=== PATIENT | male | born 1945 | race Caucasian/White ===

== ENCOUNTER 2020-10-06 13:38 | Outpatient (CLI) | payer MEDICARE ==
[~2020-10-06 13:38] MED LIST: Magnevist 469MG/ML 20 ML VIAL ONE
== END 2020-10-06 13:39 | disposition home or self-care (01) ==
LOC: BICMRI 13:38
PROVIDERS: ATTEND Specialist
DX: M51.16 Intervertebral disc disorders with radiculopathy, lumbar region (principal); M47.26 Other spondylosis with radiculopathy, lumbar region; M47.817 Spondylosis without myelopathy or radiculopathy, lumbosacral region; M48.061 Spinal stenosis, lumbar region without neurogenic claudication; Z98.890 Other specified postprocedural states
CPT/HCPCS: 72158; 82565; A9579

== ENCOUNTER → 2021-02-18 | Outpatient (CLI) | payer MEDICARE | LOC: SLEEPLAB 19:30 | PROVIDERS: ATTEND Student in an Organized Health Care Education/Training Program | DX: G47.33 Obstructive sleep apnea (adult) (pediatric) (principal); R51.9 Headache, unspecified; R09.89 Other specified symptoms and signs involving the circulatory and respiratory systems; K21.9 Gastro-esophageal reflux disease without esophagitis; R06.83 Snoring; R35.1 Nocturia; I51.9 Heart disease, unspecified; I10 Essential (primary) hypertension; I21.9 Acute myocardial infarction, unspecified; I25.10 Atherosclerotic heart disease of native coronary artery without angina pectoris; E11.9 Type 2 diabetes mellitus without complications; G47.61 Periodic limb movement disorder; E66.9 Obesity, unspecified; Z68.37 Body mass index [BMI] 37.0-37.9, adult | CPT/HCPCS: 95810 ==

== ENCOUNTER 2021-04-05 12:58 | Inpatient (IN) | payer MEDICARE ==
[2021-04-05 14:06] LABS: #Eosinphils 0.3 thou/uL (0.0-0.7); #Lymphocytes 1.8 thou/uL (1.20-3.40); #Monocytes 0.8 thou/uL (0.11-0.59); #Neutrophils 4.5 thou/uL (1.40-6.50); %Basophils 0.2 % (0.0-1.0); %Eosinophils 3.5 % (0.0-10.0); %Lymphocytes 24.7 % (21.0-51.0); %Monocytes 10.7 % (0.0-10.0); %Neutrophils 60.8 % (42.0-75.0); Hemoglobin 15.6 g/dL (14.0-18.0); Mean Corpuscular HGB CONC 33.3 g/dL (32.0-36.0); Mean Corpuscular Hemoglobin 31.1 pg (27.0-31.0); Mean Corpuscular Volume 93.2 fL (78.0-98.0); Mean Platelet Volume 10.9 fL (7.4-10.4); Platelet Count 168 thou/uL (130-400); Red Blood Cell (RBC) Count 5.01 mill/uL (4.70-6.10); White Blood Cell (WBC) Count 7.4 thou/uL (4.8-10.8)
[2021-04-05 14:21] LABS: Bilirubin Negative (Negative); Blood, Urine Negative (Negative); Clarity Clear (Clear); Glucose, Urine (Dipstick) Normal (Negative); Ketone, Urine Negative (Negative); Leukocyte Negative Leu/uL (Negative); Nitrite Negative (Negative); Protein, Urine (Dipstick) 20 mg/dL (Neg-Trace); Urobilinogen Normal mg/dL (Less than 2)
[2021-04-05 14:48] LABS: ALT (SGPT) 38 U/L (8-55); AST (SGOT) 45 U/L (5-34); Albumin 3.8 g/dL (3.4-4.8); Alkaline Phosphatase 68 U/L (40-110); Anion Gap 14 mmol/L (10-20); BUN (Urea Nitrogen) 14 mg/dL (8.4-25.7); Bilirubin, Total 0.8 mg/dL (0.2-1.2); Calc. Creatinine Clearance 0 mL/min (70-130); Calcium 9.2 mg/dL (7.8-10.44); Carbon Dioxide 21 mmol/L (23-31); Chloride 106 mmol/L (98-107); Glucose 114 mg/dL (83-110); Potassium 4.1 mmol/L (3.5-5.1); Protein, Total 7.8 g/dL (5.8-8.1); Sodium 137 mmol/L (136-145)
[2021-04-05] MEDS ORDERED: Dextrose 50% Abboject 50 ML SYRINGE SLOW IVP PRN (17:03)
[2021-04-05] MEDS ORDERED: Dextrose 5% in Water 1,000 ML IV PRN (17:03)
[2021-04-05] MEDS ORDERED: Ondansetron ODT 4 MG TAB PO PRN (17:03)
[2021-04-05] MEDS ORDERED: HumaLOG 300 UNITS/3 ML VIAL SC PRN ×2 (17:03)
[2021-04-05 17:58] LABS: Troponin I 0.012 ng/mL (< 0.028)
[2021-04-05] MEDS ORDERED: Nitroglycerin 0.4 MG TAB (25 Tab Bottle) SL PRN (18:05)
[2021-04-05 21:14] LABS: Troponin I 0.015 ng/mL (< 0.028)
[2021-04-05] MEDS: Atorvastatin Calcium 40 MG TAB PO SCH (21:55)
[2021-04-05] MEDS: Acetaminophen 325 MG TAB PO PRN (23:47)
[2021-04-06 01:09] VITALS: BMI 30.6
[2021-04-06] MEDS ORDERED: hydrALAZINE 20 MG/ML VIAL SLOW IVP PRN (05:55)
[2021-04-06 06:52] LABS: #Basophils 0.1 thou/uL (0.0-0.2); #Eosinphils 0.2 thou/uL (0.0-0.7); #Neutrophils 4.5 thou/uL (1.40-6.50); %Basophils 0.7 % (0.0-1.0); %Eosinophils 2.9 % (0.0-10.0); %Lymphocytes 25.9 % (21.0-51.0); %Monocytes 12.4 % (0.0-10.0); %Neutrophils 58.1 % (42.0-75.0); Hemoglobin 15.3 g/dL (14.0-18.0); Mean Corpuscular HGB CONC 31.8 g/dL (32.0-36.0); Mean Corpuscular Hemoglobin 29.5 pg (27.0-31.0); Mean Corpuscular Volume 92.9 fL (78.0-98.0); Mean Platelet Volume 9.5 fL (7.4-10.4); Platelet Count 149 thou/uL (130-400); RBC Distribution Width 13.7 % (11.5-14.5); Red Blood Cell (RBC) Count 5.19 mill/uL (4.70-6.10); White Blood Cell (WBC) Count 7.7 thou/uL (4.8-10.8)
[2021-04-06 07:12] LABS: ALT (SGPT) 35 U/L (8-55); AST (SGOT) 37 U/L (5-34); Albumin 3.8 g/dL (3.4-4.8); Alkaline Phosphatase 68 U/L (40-110); Anion Gap 12 mmol/L (10-20); BUN (Urea Nitrogen) 11 mg/dL (8.4-25.7); Bilirubin, Total 1.1 mg/dL (0.2-1.2); Calc. Creatinine Clearance 141 mL/min (70-130); Calcium 9.4 mg/dL (7.8-10.44); Carbon Dioxide 25 mmol/L (23-31); Chloride 106 mmol/L (98-107); Globulin 3.7 g/dL (2.4-3.5); Glucose 117 mg/dL (83-110); Potassium 3.5 mmol/L (3.5-5.1); Protein, Total 7.5 g/dL (5.8-8.1); Sodium 139 mmol/L (136-145)
[2021-04-06] MEDS: CeleCOXIB 100 MG CAP PO SCH (07:54)
[2021-04-06] MEDS: Enoxaparin Sodium 40 MG/0.4 ML SYRINGE SC SCH (07:54)
[2021-04-06] MEDS: Multivitamin W/ Minerals 1 TAB PO SCH (07:55)
[2021-04-06] MEDS: Thiamine 100 MG TAB PO SCH (07:55)
[2021-04-06] MEDS: metFORMIN 500 MG TAB PO SCH ×2 (07:59→16:38)
[2021-04-06] MEDS: Folic Acid 1 MG TAB PO SCH (07:59)
[2021-04-06 08:18] LABS: Hemoglobin A1c 6.2 % (4.0-6.0)
[2021-04-06] MEDS ORDERED: Lisinopril 5 MG TAB PO SCH (09:00)
[2021-04-06 12:52] LABS: SARS-CoV-2 PCR by NAA Not Detected (NotDetected)
[2021-04-06] MEDS: Acetaminophen 325 MG TAB PO PRN (15:24)
[2021-04-06] MEDS ORDERED: traMADol HCl 50 MG TAB PO PRN (18:04)
[2021-04-06] MEDS: hydrALAZINE 20 MG/ML VIAL SLOW IVP PRN (18:25)
[2021-04-06] MEDS: Atorvastatin Calcium 40 MG TAB PO SCH (20:43)
[2021-04-07] MEDS: hydrALAZINE 20 MG/ML VIAL SLOW IVP PRN ×2 (06:35→10:22)
[2021-04-07] MEDS: metFORMIN 500 MG TAB PO SCH ×2 (08:49→16:29)
[2021-04-07] MEDS: CeleCOXIB 100 MG CAP PO SCH (08:49)
[2021-04-07] MEDS: Thiamine 100 MG TAB PO SCH (08:50)
[2021-04-07] MEDS: Folic Acid 1 MG TAB PO SCH (08:50)
[2021-04-07] MEDS: Enoxaparin Sodium 40 MG/0.4 ML SYRINGE SC SCH (08:50)
[2021-04-07] MEDS: Multivitamin W/ Minerals 1 TAB PO SCH (08:50)
[2021-04-07] MEDS ORDERED: Lisinopril 20 MG TAB PO SCH (09:00)
[2021-04-07] MEDS: Acetaminophen 325 MG TAB PO PRN (16:34)
[2021-04-07] MEDS: Atorvastatin Calcium 40 MG TAB PO SCH (20:42)
[2021-04-08] MEDS: CeleCOXIB 100 MG CAP PO SCH (08:46)
[2021-04-08] MEDS: Lisinopril 20 MG TAB PO SCH (08:47)
[2021-04-08] MEDS: Folic Acid 1 MG TAB PO SCH (08:48)
[2021-04-08] MEDS: Enoxaparin Sodium 40 MG/0.4 ML SYRINGE SC SCH (08:48)
[2021-04-08] MEDS: Multivitamin W/ Minerals 1 TAB PO SCH (08:48)
[2021-04-08] MEDS: metFORMIN 500 MG TAB PO SCH ×2 (08:48→17:16)
[2021-04-08] MEDS: Thiamine 100 MG TAB PO SCH (08:48)
[2021-04-08] MEDS ORDERED: NIFEdipine XL 30 MG TAB PO SCH (09:00)
[2021-04-08] MEDS: Lorazepam 1 MG TAB PO PRN ×2 (15:07→20:06)
[2021-04-08] MEDS: Atorvastatin Calcium 40 MG TAB PO SCH (20:06)
[2021-04-09] MEDS: Lorazepam 1 MG TAB PO PRN (00:05)
[2021-04-09] MEDS: Lisinopril 20 MG TAB PO SCH (13:14)
[2021-04-09] MEDS: CeleCOXIB 100 MG CAP PO SCH (13:16)
[2021-04-09] MEDS: Thiamine 100 MG TAB PO SCH (13:16)
[2021-04-09] MEDS: Folic Acid 1 MG TAB PO SCH (13:16)
[2021-04-09] MEDS: Multivitamin W/ Minerals 1 TAB PO SCH (13:16)
[2021-04-09] MEDS: metFORMIN 500 MG TAB PO SCH ×2 (13:16→17:00)
[2021-04-09] MEDS: Enoxaparin Sodium 40 MG/0.4 ML SYRINGE SC SCH (13:18)
[2021-04-09] MEDS ORDERED: Melatonin 3 MG TAB PO PRN (17:07)
[2021-04-09] MEDS ORDERED: traZODone HCl 50 MG TAB PO PRN (17:07)
[2021-04-09] MEDS: Atorvastatin Calcium 40 MG TAB PO SCH (20:56)
[2021-04-09] MEDS ORDERED: traZODone HCl 50 MG TAB PO SCH (21:00)
[2021-04-10] MEDS ORDERED: Morphine 2 MG/ML VIAL SLOW IVP PRN (07:41)
[2021-04-10] MEDS ORDERED: Lorazepam 2 MG/ML VIAL SLOW IVP PRN (07:41)
[2021-04-10] MEDS ORDERED: Morphine 4 MG/ML VIAL SLOW IVP PRN (07:41)
[2021-04-10 08:01] VITALS: BP 117/61; TEMP 97.7
[2021-04-10] MEDS: metFORMIN 500 MG TAB PO SCH (10:05)
[2021-04-10] MEDS: Thiamine 100 MG TAB PO SCH (10:06)
[2021-04-10] MEDS: Lisinopril 20 MG TAB PO SCH (10:06)
[2021-04-10] MEDS: CeleCOXIB 100 MG CAP PO SCH (10:06)
[2021-04-10] MEDS: Multivitamin W/ Minerals 1 TAB PO SCH (10:06)
[2021-04-10] MEDS: Enoxaparin Sodium 40 MG/0.4 ML SYRINGE SC SCH (10:07)
[2021-04-10] MEDS: Folic Acid 1 MG TAB PO SCH (10:07)
[2021-04-10] MEDS ORDERED: Melatonin 3 MG TAB PO SCH (17:00)
== END 2021-04-10 15:03 | DRG 948 ==
LOC: ERS 12:58 → T4-B 16:50 → INTOOBSV 16:50 → OBSVTOIN 04-07 12:31
PROVIDERS: ADMIT Family Medicine; ATTEND Family Medicine
DX: R41.82 Altered mental status, unspecified (principal); E11.9 Type 2 diabetes mellitus without complications; E78.5 Hyperlipidemia, unspecified; I10 Essential (primary) hypertension; R19.7 Diarrhea, unspecified; F10.11 Alcohol abuse, in remission; G47.33 Obstructive sleep apnea (adult) (pediatric); N39.41 Urge incontinence; J98.6 Disorders of diaphragm; Z20.822 Contact with and (suspected) exposure to COVID-19; R29.6 Repeated falls; Z96.649 Presence of unspecified artificial hip joint; Z85.828 Personal history of other malignant neoplasm of skin; Z79.84 Long term (current) use of oral hypoglycemic drugs; Z79.899 Other long term (current) drug therapy; Z95.1 Presence of aortocoronary bypass graft; Z90.49 Acquired absence of other specified parts of digestive tract; Z98.890 Other specified postprocedural states; Z87.891 Personal history of nicotine dependence
CPT/HCPCS: 36415; 36416; 70450; 70551; 71045; 72148; 80053; 81003; 82140; 82607; 82746; 83036; 84484; 85025; 87045; 87046; 87081; 87324; 87328; 87329; 87427; 87449; 93005; 95712; 95819; 95957; J0360; J1650; Q0162; U0003; U0005

== ENCOUNTER 2021-07-27 16:55 | Emergency (ER) | payer MEDICARE ==
[2021-07-27 17:44] LABS: #Basophils 0.1 thou/uL (0.0-0.2); #Eosinphils 0.3 thou/uL (0.0-0.7); #Monocytes 0.8 thou/uL (0.11-0.59); %Basophils 0.7 % (0.0-1.0); %Eosinophils 2.5 % (0.0-10.0); %Lymphocytes 19.8 % (21.0-51.0); Hemoglobin 16.8 g/dL (14.0-18.0); Mean Corpuscular HGB CONC 31.7 g/dL (32.0-36.0); Mean Corpuscular Hemoglobin 29.7 pg (27.0-31.0); Mean Corpuscular Volume 93.5 fL (78.0-98.0); Mean Platelet Volume 9.1 fL (7.4-10.4); Platelet Count 177 thou/uL (130-400); RBC Distribution Width 14.7 % (11.5-14.5); Red Blood Cell (RBC) Count 5.65 mill/uL (4.70-6.10); White Blood Cell (WBC) Count 10.1 thou/uL (4.8-10.8)
[2021-07-27 18:08] LABS: ALT (SGPT) 33 U/L (8-55); AST (SGOT) 33 U/L (5-34); Albumin 4.2 g/dL (3.4-4.8); Alkaline Phosphatase 76 U/L (40-110); Anion Gap 18 mmol/L (10-20); BUN (Urea Nitrogen) 24 mg/dL (8.4-25.7); Bilirubin, Total 0.8 mg/dL (0.2-1.2); Calc. Creatinine Clearance 0 mL/min (70-130); Calcium 9.7 mg/dL (7.8-10.44); Carbon Dioxide 23 mmol/L (23-31); Chloride 103 mmol/L (98-107); Globulin 3.9 g/dL (2.4-3.5); Glucose 127 mg/dL (83-110); Magnesium 1.6 mg/dL (1.6-2.6); Potassium 4.6 mmol/L (3.5-5.1); Protein, Total 8.1 g/dL (5.8-8.1); Sodium 139 mmol/L (136-145)
[2021-07-27 18:47] LABS: SARS-CoV-2 NAA Rapid Test Not Detected (NotDetected)
[2021-07-27 20:55] LABS: Bilirubin Negative (Negative); Blood, Urine Negative (Negative); Clarity Clear (Clear); Glucose, Urine (Dipstick) Normal (Negative); Ketone, Urine Negative (Negative); Leukocyte Negative Leu/uL (Negative); Nitrite Negative (Negative); Protein, Urine (Dipstick) Negative (Neg-Trace); Specific Gravity, Urine 1.012 (1.002-1.036); Urobilinogen Normal mg/dL (Less than 2); pH, Urine 5.5 (5.0-9.0)
== END 2021-07-27 21:25 | disposition home or self-care (01) ==
LOC: ERS 16:55
DX: R53.1 Weakness (principal); E11.9 Type 2 diabetes mellitus without complications; E78.5 Hyperlipidemia, unspecified; E78.00 Pure hypercholesterolemia, unspecified; Z20.822 Contact with and (suspected) exposure to COVID-19
CPT/HCPCS: 70450; 71045; 80053; 81003; 83735; 84484; 85025; 87086; 93005; U0002; 36415

== ENCOUNTER 2022-09-09 09:36 | Outpatient (CLI) | payer MEDICARE | END 2022-09-09 09:37 | disposition home or self-care (01) | LOC: TBSIIMAG 09:36 | PROVIDERS: ATTEND Nurse Practitioner Family | DX: M50.11 Cervical disc disorder with radiculopathy, high cervical region (principal); M50.021 Cervical disc disorder at C4-C5 level with myelopathy | CPT/HCPCS: 72141 ==

== ENCOUNTER 2023-02-22 16:42 | Emergency (ER) | payer MEDICARE ==
[2023-02-22 17:11] LABS: #Basophils 0.1 thou/uL (0.0-0.2); #Eosinphils 0.2 thou/uL (0.0-0.7); #Monocytes 0.8 thou/uL (0.11-0.59); %Basophils 0.6 % (0.0-1.0); %Eosinophils 2.7 % (0.0-10.0); %Lymphocytes 24.6 % (21.0-51.0); %Monocytes 9.7 % (0.0-10.0); %Neutrophils 61.7 % (42.0-75.0); Hematocrit 36.9 % (42.0-52.0); Hemoglobin 12.1 g/dL (14.0-18.0); Mean Corpuscular HGB CONC 32.8 g/dL (32.0-36.0); Mean Corpuscular Hemoglobin 29.7 pg (27.0-31.0); Mean Corpuscular Volume 90.4 fl (78.0-98.0); Mean Platelet Volume 11.7 fL (7.4-10.4); Platelet Count 164 10x3/uL (130-400); RBC Distribution Width 14.9 % (11.5-14.5); Red Blood Cell (RBC) Count 4.08 mill/uL (4.70-6.10); White Blood Cell (WBC) Count 8.1 10x3/uL (4.8-10.8)
[2023-02-22 17:35] LABS: ALT (SGPT) 10 U/L (8-55); AST (SGOT) 18 U/L (5-34); Albumin 3.4 g/dL (3.4-4.8); Alkaline Phosphatase 61 U/L (40-110); Anion Gap 12 mmol/L (10-20); BUN (Urea Nitrogen) 11 mg/dL (8.4-25.7); Bilirubin, Total 0.4 mg/dL (0.2-1.2); Calc. Creatinine Clearance 0 mL/min (70-130); Calcium 8.7 mg/dL (7.8-10.44); Carbon Dioxide 21 mmol/L (23-31); Chloride 108 mmol/L (98-107); Estimated GFR 90; Globulin 3.2 g/dL (2.4-3.5); Glucose 136 mg/dL (83-110); Potassium 3.3 mmol/L (3.5-5.1); Protein, Total 6.6 g/dL (5.8-8.1); Sodium 138 mmol/L (136-145)
[2023-02-22 18:45] LABS: Troponin I Less than 0.010 ng/mL (< 0.028)
[2023-02-22 19:44] LABS: Bacteria/HPF None Seen HPF (None Seen); Bilirubin Negative (Negative); Blood, Urine Trace (Negative); CAUTI Indications for Culture Alt mental st,lethar; Clarity Turbid (Clear); Glucose, Urine (Dipstick) Normal (Negative); Ketone, Urine Negative (Negative); Leukocyte 500 Leu/uL (Negative); Nitrite Negative (Negative); Protein, Urine (Dipstick) Negative (Neg-Trace); RBC/HPF 0-3 HPF (0-3); Specific Gravity, Urine 1.011 (1.002-1.036); Squamous Epithelial None Seen HPF (0-3); Urobilinogen Normal mg/dL (Less than 2); WBC/HPF Greater than 50 HPF (0-3); pH, Urine 5.5 (5.0-9.0)
[2023-02-22 19:46] LABS: Urine Culture Reflex Yes Yes
[2023-02-22] MEDS ORDERED: cefTRIAXone (ROCEPHIN) 1 GM VIAL ONE (20:19)
== END 2023-02-22 21:09 | disposition home or self-care (01) ==
LOC: ERS 16:42
DX: N39.0 Urinary tract infection, site not specified (principal); E11.9 Type 2 diabetes mellitus without complications; E78.5 Hyperlipidemia, unspecified; I10 Essential (primary) hypertension; Z87.891 Personal history of nicotine dependence; Z79.84 Long term (current) use of oral hypoglycemic drugs; Z79.899 Other long term (current) drug therapy; Z79.82 Long term (current) use of aspirin
CPT/HCPCS: 36415; 71045; 80053; 81001; 83605; 84484; 85025; 87077; 87086; 87186; 93005; 96365; J0696

== ENCOUNTER 2023-03-07 11:17 | Inpatient (IN) | payer MEDICARE ==
[~2023-03-07 11:17] MED LIST changes: +Iopamidol-370 76% 500 ML MDV (1 ML CHARGE) ONE; -Magnevist 469MG/ML 20 ML VIAL ONE; +Polyethylene Glycol 3350 17 GM Packet PO SCH
[2023-03-07 12:03] LABS: #Basophils 0.1 thou/uL (0.0-0.2); #Eosinphils 0.1 thou/uL (0.0-0.7); #Monocytes 0.6 thou/uL (0.11-0.59); #Neutrophils 6.2 thou/uL (1.40-6.50); %Basophils 0.9 % (0.0-1.0); %Eosinophils 1.1 % (0.0-10.0); %Lymphocytes 18.1 % (21.0-51.0); %Monocytes 6.7 % (0.0-10.0); %Neutrophils 72.7 % (42.0-75.0); Hematocrit 41.2 % (42.0-52.0); Hemoglobin 12.6 g/dL (14.0-18.0); Mean Corpuscular HGB CONC 30.6 g/dL (32.0-36.0); Mean Corpuscular Hemoglobin 29.7 pg (27.0-31.0); Mean Corpuscular Volume 97.2 fl (78.0-98.0); Mean Platelet Volume 11.3 fL (7.4-10.4); Platelet Count 220 10x3/uL (130-400); RBC Distribution Width 15.9 % (11.5-14.5); Red Blood Cell (RBC) Count 4.24 mill/uL (4.70-6.10); White Blood Cell (WBC) Count 8.5 10x3/uL (4.8-10.8)
[2023-03-07 12:33] LABS: ALT (SGPT) 33 U/L (8-55); AST (SGOT) 48 U/L (5-34); Albumin 3.7 g/dL (3.4-4.8); Alkaline Phosphatase 102 U/L (40-110); Anion Gap 20 mmol/L (10-20); BUN (Urea Nitrogen) 12 mg/dL (8.4-25.7); Bilirubin, Total 0.5 mg/dL (0.2-1.2); Calc. Creatinine Clearance 0 mL/min (70-130); Calcium 9.7 mg/dL (7.8-10.44); Carbon Dioxide 18 mmol/L (23-31); Chloride 104 mmol/L (98-107); Estimated GFR 71; Globulin 3.7 g/dL (2.4-3.5); Glucose 129 mg/dL (83-110); Potassium 4.1 mmol/L (3.5-5.1); Protein, Total 7.4 g/dL (5.8-8.1); Sodium 138 mmol/L (136-145)
[2023-03-07 13:26] LABS: Bacteria/HPF None Seen HPF (None Seen); Bilirubin Negative (Negative); Blood, Urine Negative (Negative); CAUTI Indications for Culture Dysuria,urgency,freq; Clarity Clear (Clear); Glucose, Urine (Dipstick) Normal (Negative); Ketone, Urine Negative (Negative); Leukocyte Negative Leu/uL (Negative); Nitrite Negative (Negative); Protein, Urine (Dipstick) Negative (Neg-Trace); RBC/HPF 0-3 HPF (0-3); Specific Gravity, Urine 1.017 (1.002-1.036); Squamous Epithelial 0-3 HPF (0-3); Urobilinogen Normal mg/dL (Less than 2); WBC/HPF 0-3 HPF (0-3); pH, Urine 5.5 (5.0-9.0)
[2023-03-07 13:29] LABS: Urine Culture Reflex No No
[2023-03-07] MEDS ORDERED: Piperacillin/Tazobactam 4.5 GM VIAL ONE (14:19)
[2023-03-07 17:18] LABS: Lactic Acid 3.3 mmol/L (0.5-2.2)
[2023-03-07] MEDS ORDERED: Acetaminophen 650 MG Suppository PR PRN (19:11)
[2023-03-07] MEDS ORDERED: Senokot S 8.6-50 MG TAB PO PRN (19:11)
[2023-03-07] MEDS ORDERED: Bisacodyl 10 MG SUPP PR PRN (19:11)
[2023-03-07] MEDS ORDERED: Calcium Carbonate 500 MG ChewTAB PO PRN (19:11)
[2023-03-07] MEDS ORDERED: Ondansetron PF 4 MG/2 ML Vial IVP PRN (19:11)
[2023-03-07] MEDS ORDERED: Ondansetron ODT 4 MG TAB PO PRN (19:11)
[2023-03-07] MEDS ORDERED: Bisacodyl 5 MG TAB PO PRN (19:11)
[2023-03-07] MEDS ORDERED: Acetaminophen 325 MG TAB PO PRN ×2 (19:11→20:53)
[2023-03-07] MEDS ORDERED: Polyethylene Glycol 3350 17 GM Packet PO PRN (19:17)
[2023-03-07] MEDS ORDERED: Senokot S 8.6-50 MG TAB PO SCH ×2 (19:30→21:00)
[2023-03-07] MEDS ORDERED: Polyethylene Glycol 3350 17 GM Packet PO SCH (19:30)
[2023-03-07] MEDS: Lactated Ringer's 1,000 ML IV SCH (19:49)
[2023-03-07] MEDS ORDERED: Glucagon 1 MG/ML KIT IM PRN (20:52)
[2023-03-07] MEDS ORDERED: HumaLOG 300 UNITS/3 ML VIAL SC PRN ×2 (20:52)
[2023-03-07] MEDS ORDERED: Dextrose 5% in Water 1,000 ML IV PRN (20:52)
[2023-03-07] MEDS ORDERED: Dextrose 50% Abboject 50 ML SYRINGE SLOW IVP PRN (20:52)
[2023-03-07] MEDS ORDERED: Atorvastatin Calcium 40 MG TAB PO SCH (21:00)
[2023-03-07] MEDS ORDERED: diphenhydrAMINE 50 MG CAP PO PRN (22:01)
[2023-03-07] MEDS: Piperacillin/Tazobactam 3.375 GM in Sodium Chloride 0.9% 100 ML IVPB SCH (22:30)
[2023-03-08 01:28] VITALS: BMI 25.4
[2023-03-08] MEDS ORDERED: Ibuprofen 600 MG TAB PO PRN (05:34)
[2023-03-08] MEDS ORDERED: Lidocaine 2% Viscous Solution 10 ML, Aluminum & Magnesium Hydroxide 30 ML SSW SCH (05:45)
[2023-03-08] MEDS: Piperacillin/Tazobactam 3.375 GM in Sodium Chloride 0.9% 100 ML IVPB SCH (06:04)
[2023-03-08] MEDS: Lactated Ringer's 1,000 ML IV SCH (06:06)
[2023-03-08] MEDS ORDERED: metFORMIN 500 MG TAB PO SCH (08:00)
[2023-03-08] MEDS ORDERED: Sertraline 100 MG TAB PO SCH (09:00)
[2023-03-08] MEDS ORDERED: Polyethylene Glycol 3350 17 GM Packet PO SCH (09:00)
[2023-03-08] MEDS ORDERED: Aspirin 81 mg Enteric Coated Tablet PO SCH (09:00)
[2023-03-08] MEDS ORDERED: Senokot S 8.6-50 MG TAB PO SCH (09:00)
[2023-03-08 09:25] LABS: Anion Gap 11 mmol/L (10-20); BUN (Urea Nitrogen) 10 mg/dL (8.4-25.7); Calc. Creatinine Clearance 92 mL/min (70-130); Calcium 8.8 mg/dL (7.8-10.44); Carbon Dioxide 25 mmol/L (23-31); Chloride 108 mmol/L (98-107); Estimated GFR 91; Glucose 98 mg/dL (83-110); Potassium 3.8 mmol/L (3.5-5.1); Sodium 140 mmol/L (136-145)
[2023-03-08 09:32] LABS: #Eosinphils 0.1 thou/uL (0.0-0.7); #Monocytes 0.8 thou/uL (0.11-0.59); #Neutrophils 5.6 thou/uL (1.40-6.50); %Basophils 0.5 % (0.0-1.0); %Eosinophils 0.9 % (0.0-10.0); %Lymphocytes 19.3 % (21.0-51.0); %Monocytes 9.5 % (0.0-10.0); %Neutrophils 69.6 % (42.0-75.0); Hematocrit 32.5 % (42.0-52.0); Hemoglobin 10.8 g/dL (14.0-18.0); Mean Corpuscular HGB CONC 33.2 g/dL (32.0-36.0); Mean Corpuscular Hemoglobin 30.3 pg (27.0-31.0); Mean Platelet Volume 11.1 fL (7.4-10.4); Platelet Count 180 10x3/uL (130-400); RBC Distribution Width 15.9 % (11.5-14.5); Red Blood Cell (RBC) Count 3.57 mill/uL (4.70-6.10)
[2023-03-08 11:58] LABS: Troponin I 0.037 ng/mL (< 0.028)
[2023-03-08 15:48] LABS: Troponin I 0.035 ng/mL (< 0.028)
[2023-03-08 16:30] VITALS: BP 138/80; TEMP 98.2
[2023-03-08] MEDS ORDERED: hydrOXYzine 25 MG TAB PO SCH (21:00)
== END 2023-03-08 18:32 | disposition home or self-care (01) | DRG 392 ==
LOC: ERS 11:17 → ERHOLD 17:25 → 2NO 19:00
PROVIDERS: ADMIT Emergency Medicine; ATTEND Emergency Medicine
DX: K52.9 Noninfective gastroenteritis and colitis, unspecified (principal); E87.20 Acidosis, unspecified; K59.09 Other constipation; K43.9 Ventral hernia without obstruction or gangrene; I10 Essential (primary) hypertension; E78.5 Hyperlipidemia, unspecified; E11.9 Type 2 diabetes mellitus without complications; C44.311 Basal cell carcinoma of skin of nose; I95.9 Hypotension, unspecified; R74.01 Elevation of levels of liver transaminase levels; R00.0 Tachycardia, unspecified; K63.89 Other specified diseases of intestine; Z98.84 Bariatric surgery status; Z88.5 Allergy status to narcotic agent; Z79.82 Long term (current) use of aspirin; Z79.899 Other long term (current) drug therapy; Z96.641 Presence of right artificial hip joint; Z98.890 Other specified postprocedural states; Z95.1 Presence of aortocoronary bypass graft; Z87.891 Personal history of nicotine dependence
CPT/HCPCS: 36415; 36416; 51701; 71045; 74177; 80048; 80053; 81001; 83605; 84145; 84484; 85025; 87040; 93005; 93010; 96361; 96365; J1650; J2543; J3490; J7120; Q9967

== ENCOUNTER 2023-06-24 12:22 | Outpatient (CLI) | payer MEDICARE ==
[~2023-06-24 12:22] MED LIST changes: -Iopamidol-370 76% 500 ML MDV (1 ML CHARGE) ONE; +Magnevist 469MG/ML 20 ML VIAL ONE; -Polyethylene Glycol 3350 17 GM Packet PO SCH
== END 2023-06-24 12:23 | disposition home or self-care (01) ==
LOC: BICMRI 12:22
PROVIDERS: ATTEND Family Medicine
DX: L08.9 Local infection of the skin and subcutaneous tissue, unspecified (principal); M19.071 Primary osteoarthritis, right ankle and foot
CPT/HCPCS: 82565; A9579

== ENCOUNTER 2023-07-18 14:12 | Inpatient (IN) | payer MEDICARE ==
[2023-07-18 16:36] LABS: #Basophils 0.1 thou/uL (0.0-0.2); #Eosinphils 0.1 thou/uL (0.0-0.7); #Monocytes 0.7 thou/uL (0.11-0.59); #Neutrophils 6.1 thou/uL (1.40-6.50); %Basophils 0.7 % (0.0-1.0); %Eosinophils 1.5 % (0.0-10.0); %Lymphocytes 20.7 % (21.0-51.0); %Monocytes 8.2 % (0.0-10.0); %Neutrophils 68.6 % (42.0-75.0); Hematocrit 39.8 % (42.0-52.0); Hemoglobin 13.2 g/dL (14.0-18.0); Mean Corpuscular HGB CONC 33.2 g/dL (32.0-36.0); Mean Corpuscular Hemoglobin 29.7 pg (27.0-31.0); Mean Corpuscular Volume 89.6 fl (78.0-98.0); Mean Platelet Volume 11.5 fL (7.4-10.4); Platelet Count 226 10x3/uL (130-400); RBC Distribution Width 14.7 % (11.5-14.5); Red Blood Cell (RBC) Count 4.44 mill/uL (4.70-6.10); White Blood Cell (WBC) Count 8.8 10x3/uL (4.8-10.8)
[2023-07-18 17:02] LABS: ALT (SGPT) 22 U/L (8-55); AST (SGOT) 32 U/L (5-34); Albumin 4.2 g/dL (3.4-4.8); Alkaline Phosphatase 54 U/L (40-110); Anion Gap 14 mmol/L (10-20); BUN (Urea Nitrogen) 19 mg/dL (8.4-25.7); Bilirubin, Total 0.6 mg/dL (0.2-1.2); Calc. Creatinine Clearance 0 mL/min (70-130); Calcium 9.7 mg/dL (7.8-10.44); Carbon Dioxide 23 mmol/L (23-31); Chloride 105 mmol/L (98-107); Estimated GFR 81; Globulin 4.1 g/dL (2.4-3.5); Glucose 90 mg/dL (83-110); Potassium 4.7 mmol/L (3.5-5.1); Protein, Total 8.3 g/dL (5.8-8.1); Sodium 137 mmol/L (136-145)
[2023-07-18 17:08] LABS: Troponin I Less than 0.010 ng/mL (< 0.028)
[2023-07-18 17:58] LABS: Bacteria/HPF None Seen HPF (None Seen); Bilirubin Negative (Negative); Blood, Urine Negative (Negative); CAUTI Indications for Culture Pelvic or flank pain; Clarity Clear (Clear); Glucose, Urine (Dipstick) Normal (Negative); Ketone, Urine Negative (Negative); Leukocyte Negative Leu/uL (Negative); Nitrite Negative (Negative); Protein, Urine (Dipstick) Negative (Neg-Trace); RBC/HPF 0-3 HPF (0-3); Specific Gravity, Urine 1.017 (1.002-1.036); Squamous Epithelial 0-3 HPF (0-3); Urobilinogen Normal mg/dL (Less than 2); WBC/HPF 0-3 HPF (0-3)
[2023-07-18 18:09] LABS: Urine Culture Reflex No No
[2023-07-18] MEDS ORDERED: Acetaminophen 325 MG TAB PO PRN ×2 (21:30→21:46)
[2023-07-18] MEDS ORDERED: Ondansetron ODT 4 MG TAB SL PRN (21:30)
[2023-07-18] MEDS ORDERED: Ondansetron PF 4 MG/2 ML Vial IVP PRN ×2 (21:30→21:46)
[2023-07-18] MEDS ORDERED: Sodium Chloride 0.9% 1,000 ML IV SCH (21:30)
[2023-07-18] MEDS ORDERED: Bisacodyl 5 MG TAB PO PRN (21:45)
[2023-07-18] MEDS ORDERED: Dextrose 50% Abboject 50 ML SYRINGE SLOW IVP PRN (21:46)
[2023-07-18] MEDS ORDERED: Dextrose 5% in Water 1,000 ML IV PRN (21:46)
[2023-07-18] MEDS ORDERED: Glucagon 1 MG/ML KIT IM PRN (21:46)
[2023-07-18] MEDS ORDERED: HumaLOG 300 UNITS/3 ML VIAL SC PRN ×2 (21:46)
[2023-07-19] MEDS: Lactated Ringer's 1,000 ML IV SCH (02:51)
[2023-07-19] MEDS: Vancomycin (BATCH) 1.75 GM in Premix 1 BAG IVPB SCH (03:40)
[2023-07-19 04:36] LABS: #Basophils 0.1 thou/uL (0.0-0.2); #Eosinphils 0.1 thou/uL (0.0-0.7); #Monocytes 0.7 thou/uL (0.11-0.59); #Neutrophils 3.8 thou/uL (1.40-6.50); %Basophils 0.7 % (0.0-1.0); %Eosinophils 1.9 % (0.0-10.0); %Lymphocytes 35.2 % (21.0-51.0); %Monocytes 9.8 % (0.0-10.0); Hemoglobin 11.6 g/dL (14.0-18.0); Mean Corpuscular HGB CONC 33.1 g/dL (32.0-36.0); Mean Corpuscular Hemoglobin 29.6 pg (27.0-31.0); Mean Corpuscular Volume 89.3 fl (78.0-98.0); Mean Platelet Volume 10.8 fL (7.4-10.4); Platelet Count 190 10x3/uL (130-400); RBC Distribution Width 14.6 % (11.5-14.5); Red Blood Cell (RBC) Count 3.92 mill/uL (4.70-6.10); White Blood Cell (WBC) Count 7.3 10x3/uL (4.8-10.8)
[2023-07-19 05:00] LABS: Anion Gap 12 mmol/L (10-20); BUN (Urea Nitrogen) 20 mg/dL (8.4-25.7); Calc. Creatinine Clearance 89 mL/min (70-130); Calcium 9.1 mg/dL (7.8-10.44); Carbon Dioxide 25 mmol/L (23-31); Chloride 108 mmol/L (98-107); Estimated GFR 89; Glucose 97 mg/dL (83-110); Potassium 4.2 mmol/L (3.5-5.1); Sodium 141 mmol/L (136-145)
[2023-07-19] MEDS ORDERED: Sodium Chloride 0.9% 100 ML ONE (06:01)
[2023-07-19] MEDS ORDERED: Cefepime 2 GM VIAL ONE (06:01)
[2023-07-19] MEDS ORDERED: Cefepime 1 GM VIAL ONE (06:04)
[2023-07-19] MEDS: Cefepime 1 GM in Sodium Chloride 0.9% 100 ML IVPB SCH (06:11)
[2023-07-19] MEDS ORDERED: Vancomycin HCl 750 MG in Sodium Chloride 0.9% 250 ML 250 ML IVPB SCH (09:00)
[2023-07-19] MEDS ORDERED: Fleet Saline Enema 133 ML BOT ONE (10:17)
[2023-07-19] MEDS ORDERED: Aspirin 81 mg Enteric Coated Tablet ONE (10:17)
[2023-07-19] MEDS ORDERED: Famotidine 20 MG TAB ONE (10:17)
[2023-07-19] MEDS ORDERED: Iopamidol-370 76% 500 ML MDV (1 ML CHARGE) ONE (10:37)
[2023-07-19] MEDS: Fleet Saline Enema 133 ML BOT PR SCH (10:46)
[2023-07-19] MEDS: Famotidine 20 MG TAB PO SCH (10:46)
[2023-07-19] MEDS: Aspirin 81 mg Enteric Coated Tablet PO SCH (10:46)
[2023-07-19] MEDS: Acetaminophen 325 MG TAB PO PRN (14:49)
[2023-07-19] MEDS ORDERED: Vancomycin (BATCH) 1.25 GM in Premix 1 BAG IVPB SCH (15:00)
[2023-07-19] MEDS: Cefepime 2 GM in Sodium Chloride 0.9% 100 ML IVPB SCH (17:43)
[2023-07-19] MEDS: Sertraline 100 MG TAB PO SCH (17:44)
[2023-07-19] MEDS: metFORMIN 500 MG TAB PO SCH (17:44)
[2023-07-19] MEDS: Senokot S 8.6-50 MG TAB PO SCH (21:03)
[2023-07-19] MEDS: Atorvastatin Calcium 40 MG TAB PO SCH (21:03)
[2023-07-20 06:34] LABS: #Eosinphils 0.2 thou/uL (0.0-0.7); #Monocytes 0.6 thou/uL (0.11-0.59); #Neutrophils 4.6 thou/uL (1.40-6.50); %Basophils 0.6 % (0.0-1.0); %Eosinophils 2.6 % (0.0-10.0); %Monocytes 8.7 % (0.0-10.0); %Neutrophils 65.7 % (42.0-75.0); Hematocrit 36.1 % (42.0-52.0); Hemoglobin 11.9 g/dL (14.0-18.0); Mean Corpuscular Hemoglobin 29.8 pg (27.0-31.0); Mean Corpuscular Volume 90.5 fl (78.0-98.0); Mean Platelet Volume 10.7 fL (7.4-10.4); Platelet Count 186 10x3/uL (130-400); RBC Distribution Width 14.6 % (11.5-14.5); Red Blood Cell (RBC) Count 3.99 mill/uL (4.70-6.10)
[2023-07-20 07:03] LABS: Anion Gap 12 mmol/L (10-20); BUN (Urea Nitrogen) 12 mg/dL (8.4-25.7); Calc. Creatinine Clearance 103 mL/min (70-130); Calcium 9.1 mg/dL (7.8-10.44); Carbon Dioxide 24 mmol/L (23-31); Chloride 109 mmol/L (98-107); Estimated GFR 93; Glucose 94 mg/dL (83-110); Potassium 3.6 mmol/L (3.5-5.1); Sodium 141 mmol/L (136-145)
[2023-07-20] MEDS: HYDROcodone/Acetaminophen 10/325 mg Tablet PO PRN (19:59)
[2023-07-21 04:41] LABS: #Basophils 0.1 thou/uL (0.0-0.2); #Eosinphils 0.2 thou/uL (0.0-0.7); #Monocytes 0.6 thou/uL (0.11-0.59); #Neutrophils 4.2 thou/uL (1.40-6.50); %Basophils 0.9 % (0.0-1.0); %Eosinophils 3.1 % (0.0-10.0); %Lymphocytes 24.6 % (21.0-51.0); %Monocytes 9.2 % (0.0-10.0); %Neutrophils 61.9 % (42.0-75.0); Hemoglobin 11.2 g/dL (14.0-18.0); Mean Corpuscular HGB CONC 32.9 g/dL (32.0-36.0); Mean Corpuscular Hemoglobin 29.3 pg (27.0-31.0); Mean Platelet Volume 11.4 fL (7.4-10.4); Platelet Count 174 10x3/uL (130-400); RBC Distribution Width 14.7 % (11.5-14.5); Red Blood Cell (RBC) Count 3.82 mill/uL (4.70-6.10); White Blood Cell (WBC) Count 6.8 10x3/uL (4.8-10.8)
[2023-07-21 05:06] LABS: Anion Gap 11 mmol/L (10-20); BUN (Urea Nitrogen) 12 mg/dL (8.4-25.7); Calc. Creatinine Clearance 106 mL/min (70-130); Calcium 8.8 mg/dL (7.8-10.44); Carbon Dioxide 24 mmol/L (23-31); Chloride 107 mmol/L (98-107); Estimated GFR 94; Glucose 99 mg/dL (83-110); Potassium 3.6 mmol/L (3.5-5.1); Sodium 138 mmol/L (136-145)
[2023-07-21 05:47] VITALS: BMI 25.5
[2023-07-21 15:18] VITALS: BP 131/63; TEMP 98.1
== END 2023-07-21 16:10 | disposition home or self-care (01) | DRG 312 ==
LOC: ERS 14:12 → ERHOLD 22:33 → OBSVTOIN 07-19 10:40 → 2NO 07-19 13:34
PROVIDERS: ADMIT Internal Medicine; ATTEND Hospitalist
DX: I95.1 Orthostatic hypotension (principal); E87.20 Acidosis, unspecified; L03.032 Cellulitis of left toe; E11.9 Type 2 diabetes mellitus without complications; I10 Essential (primary) hypertension; E78.5 Hyperlipidemia, unspecified; I25.10 Atherosclerotic heart disease of native coronary artery without angina pectoris; F41.9 Anxiety disorder, unspecified; F32.A Depression, unspecified
CPT/HCPCS: 36415; 36416; 71045; 75635; 80048; 80050; 80061; 81001; 82533; 83036; 83605; 83880; 84484; 85025; 87040; 93005; 97139; J0692; J3370; J3490; J7120; Q9967

== ENCOUNTER 2023-09-05 15:51 | Emergency (ER) | payer MEDICARE, OTHER ==
[2023-09-05 17:50] LABS: #Eosinphils 0.2 thou/uL (0.0-0.7); #Monocytes 0.7 thou/uL (0.11-0.59); #Neutrophils 4.8 thou/uL (1.40-6.50); %Basophils 0.5 % (0.0-1.0); %Lymphocytes 23.9 % (21.0-51.0); %Neutrophils 64.3 % (42.0-75.0); Hematocrit 33.5 % (42.0-52.0); Hemoglobin 11.1 g/dL (14.0-18.0); Mean Corpuscular HGB CONC 33.1 g/dL (32.0-36.0); Mean Corpuscular Volume 90.5 fl (78.0-98.0); Mean Platelet Volume 11.3 fL (7.4-10.4); Platelet Count 168 10x3/uL (130-400); RBC Distribution Width 14.7 % (11.5-14.5); White Blood Cell (WBC) Count 7.5 10x3/uL (4.8-10.8)
[2023-09-05 18:16] LABS: Troponin I 0.014 ng/mL (< 0.028)
[2023-09-05 18:22] LABS: ALT (SGPT) 13 U/L (8-55); AST (SGOT) 20 U/L (5-34); Albumin 3.5 g/dL (3.4-4.8); Alkaline Phosphatase 50 U/L (40-110); Anion Gap 15 mmol/L (10-20); BUN (Urea Nitrogen) 29 mg/dL (8.4-25.7); Bilirubin, Total 0.5 mg/dL (0.2-1.2); Calc. Creatinine Clearance 0 mL/min (70-130); Calcium 8.9 mg/dL (7.8-10.44); Carbon Dioxide 22 mmol/L (23-31); Chloride 107 mmol/L (98-107); Estimated GFR 65; Globulin 2.7 g/dL (2.4-3.5); Glucose 99 mg/dL (83-110); Potassium 4.8 mmol/L (3.5-5.1); Protein, Total 6.2 g/dL (5.8-8.1); Sodium 139 mmol/L (136-145)
== END 2023-09-05 20:15 | disposition home or self-care (01) ==
LOC: ERS 15:51
DX: R53.1 Weakness (principal); E11.9 Type 2 diabetes mellitus without complications; E78.5 Hyperlipidemia, unspecified; I10 Essential (primary) hypertension; Z87.891 Personal history of nicotine dependence; Z79.84 Long term (current) use of oral hypoglycemic drugs; Z79.82 Long term (current) use of aspirin; Z79.899 Other long term (current) drug therapy
CPT/HCPCS: 36415; 80053; 84484; 85025; 93005

== ENCOUNTER 2024-02-01 16:00 | Outpatient (CLI) | payer MEDICARE | END 2024-02-01 16:01 | disposition home or self-care (01) | LOC: SLEEPLAB 16:00 | PROVIDERS: ATTEND Family Medicine | DX: G47.33 Obstructive sleep apnea (adult) (pediatric) (principal); R53.83 Other fatigue; E11.9 Type 2 diabetes mellitus without complications; R06.83 Snoring; I10 Essential (primary) hypertension; G47.10 Hypersomnia, unspecified; G47.00 Insomnia, unspecified; G47.61 Periodic limb movement disorder; G47.52 REM sleep behavior disorder | CPT/HCPCS: 95810 ==

== ENCOUNTER 2024-08-30 08:15 | Inpatient (IN) | payer MEDICARE ==
[2024-08-30] MEDS ORDERED: Ondansetron PF 4 MG/2 ML Vial ONE (08:24)
[2024-08-30] MEDS ORDERED: Morphine 4 MG/ML VIAL ONE ×2 (08:24→13:30)
[2024-08-30 09:52] LABS: #Basophils 0.05 10x3/uL (0.0-0.2); %Basophils 0.4 % (0.0-1.0); %Eosinophils 1.5 % (0.0-10.0); %Lymphocytes 12.5 % (21.0-51.0); %Neutrophils 79.2 % (42.0-75.0); Hematocrit 39.7 % (42.0-52.0); Hemoglobin 12.8 g/dL (14.0-18.0); Mean Corpuscular HGB CONC 32.2 g/dL (32.0-36.0); Mean Corpuscular Hemoglobin 29.4 pg (27.0-31.0); Mean Corpuscular Volume 91.1 fL (78.0-98.0); Mean Platelet Volume 10.8 fL (7.4-10.4); Platelet Count 195 10x3/uL (130-400); RBC Distribution Width 15.2 % (11.5-14.5); Red Blood Cell (RBC) Count 4.36 mill/uL (4.70-6.10)
[2024-08-30 10:10] LABS: ALT (SGPT) 18 U/L (Less than 45); AST (SGOT) 36 U/L (11-34); Albumin 3.7 g/dL (3.1-4.5); Alkaline Phosphatase 65 U/L (40-110); Anion Gap 14 mmol/L (10-20); BUN (Urea Nitrogen) 14 mg/dL (8.4-25.7); Bilirubin, Total 0.6 mg/dL (0.3-1.2); Calc. Creatinine Clearance 0 mL/min (70-130); Calcium 9.5 mg/dL (7.8-10.44); Carbon Dioxide 26 mmol/L (23-31); Chloride 108 mmol/L (98-107); Estimated GFR 69; Glucose 105 mg/dL (83-110); Potassium 4.3 mmol/L (3.5-5.1); Protein, Total 7.7 g/dL (5.8-8.1); Sodium 144 mmol/L (136-145)
[2024-08-30] MEDS ORDERED: Glucagon 1 MG/ML KIT IM PRN (13:29)
[2024-08-30] MEDS ORDERED: Dextrose 5% in Water 1,000 ML IV PRN (13:29)
[2024-08-30] MEDS ORDERED: Ondansetron ODT 4 MG TAB PO PRN (13:29)
[2024-08-30] MEDS ORDERED: hydrALAZINE 20 MG/ML VIAL SLOW IVP PRN (13:29)
[2024-08-30] MEDS ORDERED: Dextrose 50% Abboject 50 ML SYRINGE SLOW IVP PRN (13:29)
[2024-08-30] MEDS ORDERED: Ondansetron PF 4 MG/2 ML Vial IVP PRN (13:29)
[2024-08-30 17:11] VITALS: BMI 25.3
[2024-08-30] MEDS: Atorvastatin Calcium 40 MG TAB PO SCH (21:06)
[2024-08-30] MEDS: HYDROcodone/Acetaminophen 5/325 mg Tablet PO PRN (21:15)
[2024-08-31 05:46] LABS: #Basophils 0.05 10x3/uL (0.0-0.2); %Basophils 0.6 % (0.0-1.0); %Eosinophils 2.4 % (0.0-10.0); %Lymphocytes 18.2 % (21.0-51.0); %Neutrophils 68.4 % (42.0-75.0); Hematocrit 35.4 % (42.0-52.0); Hemoglobin 11.3 g/dL (14.0-18.0); Mean Corpuscular HGB CONC 31.9 g/dL (32.0-36.0); Mean Corpuscular Hemoglobin 29.1 pg (27.0-31.0); Mean Corpuscular Volume 91.2 fL (78.0-98.0); Mean Platelet Volume 10.7 fL (7.4-10.4); Platelet Count 143 10x3/uL (130-400); RBC Distribution Width 15.5 % (11.5-14.5); Red Blood Cell (RBC) Count 3.88 mill/uL (4.70-6.10)
[2024-08-31] MEDS: Acetaminophen/Codeine 30-300mg Tablet PO PRN (06:27)
[2024-08-31] MEDS: Methocarbamol 500 MG TAB PO PRN (06:27)
[2024-08-31 06:38] LABS: Anion Gap 12 mmol/L (10-20); BUN (Urea Nitrogen) 15 mg/dL (8.4-25.7); Calc. Creatinine Clearance 77 mL/min (70-130); Calcium 8.9 mg/dL (7.8-10.44); Carbon Dioxide 26 mmol/L (23-31); Chloride 105 mmol/L (98-107); Estimated GFR 80; Glucose 119 mg/dL (83-110); Potassium 3.7 mmol/L (3.5-5.1); Sodium 139 mmol/L (136-145)
[2024-08-31] MEDS: metFORMIN 500 MG TAB PO SCH (08:58)
[2024-08-31] MEDS: Gabapentin 300 MG CAP PO SCH (08:58)
[2024-08-31] MEDS: Oxybutynin ER 5 MG TAB PO SCH (08:59)
[2024-08-31] MEDS: Pantoprazole 40 MG DR.TAB PO SCH (08:59)
[2024-08-31] MEDS: Sertraline 100 MG TAB PO SCH (08:59)
[2024-08-31] MEDS: FLU (Fluad Triv) TS24-25 (65UP)/MF59C/PF 45 MCG/0.5 ML Syringe IM ONE (12:20)
[2024-08-31] MEDS: Metoprolol Succinate XL 50 MG ER.TAB PO SCH (12:21)
[2024-09-01] MEDS: Enoxaparin 40 MG (0.4 mL) SYRINGE SC SCH (08:54)
[2024-09-02] MEDS: Polyethylene Glycol 3350 17 GM Packet PO SCH (11:28)
[2024-09-02] MEDS: Senokot S 8.6-50 MG TAB PO SCH (20:28)
[2024-09-03] MEDS: Polyethylene Glycol 3350 17 GM Packet PO SCH (08:27)
[2024-09-03] MEDS: Acetaminophen 325 MG TAB PO PRN (20:39)
[2024-09-04] MEDS ORDERED: COLCHICINE 0.6 MG PO PRN (10:35)
[2024-09-04] MEDS ORDERED: Ibuprofen 600 MG TAB PO PRN (10:35)
[2024-09-04] MEDS: Acetaminophen 325 MG TAB PO SCH (11:56)
[2024-09-04] MEDS: Insulin Lispro 100 UNIT/ML 10 ML VIAL SC PRN (11:56)
[2024-09-04 15:49] VITALS: BP 119/72; TEMP 98
[2024-09-04] MEDS ORDERED: Senokot S 8.6-50 MG TAB PO SCH (21:00)
[2024-09-05] MEDS ORDERED: Polyethylene Glycol 3350 17 GM Packet PO SCH (09:00)
[2024-09-05] MEDS ORDERED: Allopurinol 100 MG TAB PO SCH (09:00)
[2024-09-05] MEDS ORDERED: Ferrous Sulfate 325 MG TAB PO SCH (12:00)
[2024-09-06] MEDS ORDERED: Docusate 100 MG CAP PO SCH (09:00)
== END 2024-09-04 19:00 | DRG 536 ==
LOC: ERS 08:15 → SURG B 13:39
PROVIDERS: ADMIT Surgery; ATTEND Surgery
DX: S72.111A Displaced fracture of greater trochanter of right femur, initial encounter for closed fracture (principal); M97.01XA Periprosthetic fracture around internal prosthetic right hip joint, initial encounter; E11.9 Type 2 diabetes mellitus without complications; I10 Essential (primary) hypertension; E78.5 Hyperlipidemia, unspecified; Z85.828 Personal history of other malignant neoplasm of skin; I25.10 Atherosclerotic heart disease of native coronary artery without angina pectoris; Z95.1 Presence of aortocoronary bypass graft; Z87.891 Personal history of nicotine dependence; Z96.641 Presence of right artificial hip joint; W01.198A Fall on same level from slipping, tripping and stumbling with subsequent striking against other object, initial encounter; Z88.2 Allergy status to sulfonamides; Z88.8 Allergy status to other drugs, medicaments and biological substances; Z79.899 Other long term (current) drug therapy; Z79.82 Long term (current) use of aspirin; Z79.84 Long term (current) use of oral hypoglycemic drugs
CPT/HCPCS: 36415; 36416; 72072; 72100; 80048; 80053; 85025; 96374; 96375; 96376; G0390; J1650; J1815; J2270; J2405

== ENCOUNTER 2025-04-25 08:00 | Outpatient (CLI) | payer MEDICARE | END 2025-04-25 12:56 | disposition home or self-care (01) | LOC: MRI 08:00 | PROVIDERS: ATTEND Family Medicine Sports Medicine | DX: M75.111 Incomplete rotator cuff tear or rupture of right shoulder, not specified as traumatic (principal) ==

== ENCOUNTER 2025-05-18 09:17 | Emergency (ER) | payer MEDICARE ==
[2025-05-18] MEDS ORDERED: Dexamethasone 4 MG TAB ONE (10:07)
[2025-05-18] MEDS ORDERED: Ibuprofen 200 MG TAB ONE (10:08)
== END 2025-05-18 10:12 | disposition home or self-care (01) ==
LOC: ERS 09:17
DX: K04.7 Periapical abscess without sinus (principal); I25.10 Atherosclerotic heart disease of native coronary artery without angina pectoris; E11.9 Type 2 diabetes mellitus without complications; I10 Essential (primary) hypertension; Z87.891 Personal history of nicotine dependence
CPT/HCPCS: 99282; J8540